=== PATIENT | female | born 1995 | race Two or more races ===

== ENCOUNTER 2023-09-23 00:10 | Emergency (ER) | payer OTHER ==
[~2023-09-23] VITALS: Ht 165.1 cm; Wt 163.0 kg
[2023-09-23 00:11] VITALS: BP 142/91; PULSE 81; RESP 20; O2SAT 100
[2023-09-23 02:47] LABS: COVID19 ANTIGEN SOFIA FIA NEGATIVE (NEGATIVE); Rapid Influenza A Negative (Negative); Rapid Influenza B Negative (Negative)
== END 2023-09-23 01:44 | disposition left against medical advice (07) ==
LOC: ER 00:10
DX: R51.9 Headache, unspecified (principal); R68.83 Chills (without fever); Z20.822 Contact with and (suspected) exposure to COVID-19; Z53.21 Procedure and treatment not carried out due to patient leaving prior to being seen by health care provider
CPT/HCPCS: 36415; 87426; 87804